=== PATIENT | male | born 1990 | race Caucasian/White ===

== ENCOUNTER 2021-11-08 09:36 | Emergency (ER) | payer SELFPAY ==
[~2021-11-08] VITALS: Ht 175.3 cm; Wt 84.1 kg
[2021-11-08 09:37] VITALS: TEMP 98
[2021-11-08] MEDS ORDERED: KEPPRA 500MG500 MG PO (09:52)
[2021-11-08 10:40] VITALS: BP 102/50; PULSE 75
--- NOTE | 2021-11-08 10:49 | NUR ---
LC responded to consult. The patient presented to the ED after having a seizure. He reports that he cannot afford his seizure medications and has not been taking them. LC met with the patient. The patient lives in [place] with a roommate, Tahir. He states that he works for [employer] and that he does have health insurance through them. He states that he does not have his health insurance card on him and is unsure which insurance he has. The patient states that he has not been prescribed his seizure medication since he moved here from [place]. He states that this was over 6 months ago and he has not gotten established with a new provider in [place] yet. The patient's preferred pharmacy is [facility]. SW priced the patient's medication, Keppra, at [facility]. The pharmacist reports that they do not have the patient's insurance on file and that the davalos of the Keppra, without insurance is $9.00. LC informed the patient. The patient reports that he would be able to afford this and pick it up. He states that his roommate can take him to pick it up. LC faxed the script to [facility]. LC then discussed getting set up with a primary care provider for follow up and continued care. LC informed him of [facility] in [facility] and , but how the [facility] would be able to get him in sooner. The patient verbalized understanding and states that his roommate would be able to transport him to the [facility]. LC contacted [facility] in and secured the patient an appointment on 11/14 at 1500. LC informed the patient and his RN of the appointment. LC faxed the patient's records to [facility] in . LC also provided the patient with [facility]'s Resource Guide. No additional needs at this time.
== END 2021-11-08 10:40 | disposition home or self-care (01) ==
LOC: COL.ER 09:36
DX: G40.909 Epilepsy, unspecified, not intractable, without status epilepticus (principal); F17.200 Nicotine dependence, unspecified, uncomplicated
CPT/HCPCS: J1953

== ENCOUNTER → 2022-01-11 | Outpatient (CLI) | payer OTHER ==
[~2022-01-11] MED LIST: KEPPRA 500MG500 MG PO
== END ==
LOC: COL.RAD 08:34
DX: G40.89 Other seizures (principal)
CPT/HCPCS: A9575

== ENCOUNTER 2024-02-19 18:50 | Emergency (ER) | payer OTHER ==
[~2024-02-19] VITALS: Ht 175.3 cm; Wt 77.3 kg
[2024-02-19 18:51] VITALS: TEMP 97.9
[2024-02-19] MEDS ORDERED: LR 1,000 ML IV ONE (19:00)
[2024-02-19] MEDS ORDERED: levETIRAcetam 500 MG TAB PO ONE (19:00)
[2024-02-19] MEDS ORDERED: KEPPRA750 MG PO (19:58)
[2024-02-19 20:08] VITALS: BP 111/76; PULSE 82
== END 2024-02-19 20:32 | disposition home or self-care (01) ==
LOC: COL.ER 18:50
DX: G40.909 Epilepsy, unspecified, not intractable, without status epilepticus (principal); Z91.148 Patient's other noncompliance with medication regimen for other reason
CPT/HCPCS: J7120